=== PATIENT | male | born 1970 | race Two or more races ===

== ENCOUNTER 2024-07-07 09:17 | Emergency (ER) | payer OTHER ==
[~2024-07-07] VITALS: Ht 172.7 cm; Wt 92.5 kg
[2024-07-07] MEDS ORDERED: NEURONTIN800 MG (10:13)
[2024-07-07] MEDS ORDERED: DEXAMETHASONE SODIUM PHOSPHATE 4 MG/ML VIAL IM STA (14:18)
[2024-07-07] MEDS ORDERED: DEXAMETHASONE SODIUM PHOSPHATE 4 MG/ML VIAL ONE (14:21)
== END 2024-07-07 14:30 | disposition home or self-care (01) ==
LOC: ER 09:18
DX: R04.0 Epistaxis (principal); Z88.0 Allergy status to penicillin